=== PATIENT | female | born 1980 | race Caucasian/White ===

== ENCOUNTER 2018-11-13 06:40 | Inpatient (IN) | payer BC ==
[2018-11-13] MEDS ORDERED: CARBOPROST 250 MCG INJ IM ×2 (07:30→10:00)
[2018-11-13] MEDS ORDERED: MISOPROSTOL 200 MCG TAB PR ×2 (07:30→10:00)
[2018-11-13] MEDS ORDERED: OXYTOCIN 30 UNITS/LR 500 ML IV ×3 (07:30→09:20)
[2018-11-13] MEDS ORDERED: METHYLERGONOVINE 0.2 MG INJ IM (07:30)
[2018-11-13 07:31] LABS: ADD MAN DIFF? NO
[2018-11-13 07:38] LABS: ABNORMAL IP MESSAGE 1; BASOPHILS % 0.4 % (0.0-2.0); EOSINOPHILS % 0.5 % (0.0-7.0); HEMATOCRIT 36.9 % (37.0-47.0); HEMOGLOBIN 12.1 g/dl (12.0-16.0); LYMPHOCYTES # 2.2 10^3/ul (0.8-2.9); LYMPHOCYTES % 27.7 % (15.0-51.0); MEAN CORPUSCULAR HGB CONC 32.8 g/dl (32.0-37.0); MEAN CORPUSCULAR VOLUME 88.5 fl (82.0-101.0); MONOCYTE # 0.4 10^3/ul (0.3-0.9); MONOCYTES % 5.4 % (0.0-11.0); NEUTROPHIL # 5.2 10^3/ul (1.6-7.5); NEUTROPHILS % 65.5 % (39.0-77.0); PLATELET COUNT 76 10^3/UL (140-415); POSITIVE DIFF @See below; RED BLOOD COUNT 4.17 10^6/ul (4.20-5.40); RED CELL DISTRIBUTION WIDTH 15.5 % (11.5-14.5)
[2018-11-13 07:52] LABS: INR 0.85; PARTIAL THROMBOPLASTIN TIME 25.2 Sec (23.0-35.0); PROTIME 11.7 Sec (11.9-14.9); PT RATIO 0.9
[2018-11-13] MEDS: LACTATED RINGER'S 1,000 ML IV ×2 (07:57)
[2018-11-13] MEDS: AZITHROMYCIN 500MG/NS (PMX) 250 ML IV (07:58)
[2018-11-13] MEDS ORDERED: METOCLOPRAMIDE 10 MG INJ (08:24)
[2018-11-13] MEDS ORDERED: ONDANSETRON 4 MG INJ (08:24)
[2018-11-13] MEDS ORDERED: morphine SULFATE/PF (10 MG/10 ML) INJ (08:24)
[2018-11-13 08:26] LABS: HEPATITIS B SURFACE ANTIGEN NEGATIVE (NEGATIVE)
[2018-11-13] MEDS ORDERED: EPHEDrine 25 MG/5 ML SYG (08:39)
[2018-11-13 08:56] LABS: ALANINE AMINOTRANSFERASE 16 IU/L (13-69); ALBUMIN 3.4 g/dl (3.3-4.9); ALBUMIN/GLOBULIN RATIO 0.94; ALKALINE PHOSPHATASE 204 IU/L (42-121); ANION GAP 9 (5-13); ASPARTATE AMINO TRANSFERASE 19 IU/L (15-46); BILIRUBIN,INDIRECT 0.3 mg/dl (0-1.1); BILIRUBIN,TOTAL 0.3 mg/dl (0.2-1.3); CARBON DIOXIDE 20 mmol/L (21-31); CHLORIDE 108 mmol/L (97-110); GLUCOSE 90 mg/dl (70-220); SODIUM 137 mmol/L (135-144); URIC ACID 5.9 mg/dl (3.1-7.9)
[2018-11-13 08:57] LABS: BLOOD UREA NITROGEN 15 mg/dl (7-20); CREATININE 0.52 mg/dl (0.44-1.00); Estimated GFR > 60 mL/min (>60)
[2018-11-13 09:09] LABS: ADD UMIC YES; UR ASCORBIC ACID NEGATIVE (NEGATIVE); UR BACTERIA FEW /HPF (NONE SEEN); UR BILIRUBIN (Dip) NEGATIVE (NEGATIVE); UR BLOOD (Dip) 2+ mg/dL (NEGATIVE); UR CLARITY SLIGHTLY CLOUDY (CLEAR); UR COLOR YELLOW (YELLOW); UR GLUCOSE (Dip) NEGATIVE (NEGATIVE); UR KETONES (Dip) NEGATIVE (NEGATIVE); UR LEUKOCYTE ESTERASE (Dip) 3+ Leu/ul (NEGATIVE); UR MUCUS FEW /HPF (NONE SEEN); UR NITRITE (Dip) NEGATIVE (NEGATIVE); UR RBC 1 /HPF (0-5); UR SPECIFIC GRAVITY (Dip) 1.019 (1.003-1.030); UR SQUAMOUS EPITHELIAL CELL FEW /HPF (FEW); UR TOTAL PROTEIN (Dip) NEGATIVE (NEGATIVE); UR UROBILINOGEN (Dip) NEGATIVE (NEGATIVE); UR WBC 11 /HPF (0-5)
[2018-11-13] MEDS: CEFAZOLIN 2 GM/50 ML (PMX) 50 ML IVPB ×2 (09:44→16:35)
[2018-11-13] MEDS: OXYTOCIN 30 UNITS/LR 500 ML IV ×3 (09:53→13:56)
[2018-11-13] MEDS ORDERED: MEPERIDINE 25 MG INJ IV (10:00)
[2018-11-13] MEDS ORDERED: NACL 0.9% 3 ML SYG IV (10:00)
[2018-11-13] MEDS ORDERED: morphine 2 MG INJ IV ×5 (10:00)
[2018-11-13] MEDS ORDERED: NALOXONE (0.4 MG/ML) INJ IV (10:00)
[2018-11-13] MEDS ORDERED: DIPHENHYDRAMINE 50 MG INJ IV ×2 (10:00)
[2018-11-13] MEDS: ONDANSETRON 4 MG INJ IV ×2 (11:47→13:10)
[2018-11-13] MEDS: METHYLERGONOVINE 0.2 MG INJ IM (12:25)
[2018-11-13 21:32] LABS: RAPID PLASMA REAGIN NONREACTIVE (NR)
[2018-11-14] MEDS: CEFAZOLIN 2 GM/50 ML (PMX) 50 ML IVPB ×3 (00:13→08:03)
[2018-11-14] MEDS: morphine 2 MG INJ IV (03:44)
[2018-11-14 07:09] LABS: ADD MAN DIFF? NO
[2018-11-14 07:12] LABS: WHITE BLOOD COUNT 12.5 10^3/ul (4.8-10.8)
[2018-11-14 07:12] LABS: ABNORMAL IP MESSAGE 1; BASOPHILS % 0.2 % (0.0-2.0); EOSINOPHILS % 0.2 % (0.0-7.0); HEMATOCRIT 28.4 % (37.0-47.0); HEMOGLOBIN 9.3 g/dl (12.0-16.0); LYMPHOCYTES # 1.8 10^3/ul (0.8-2.9); LYMPHOCYTES % 14.8 % (15.0-51.0); MEAN CORPUSCULAR HEMOGLOBIN 29.3 pg (29.0-33.0); MEAN CORPUSCULAR HGB CONC 32.7 g/dl (32.0-37.0); MEAN CORPUSCULAR VOLUME 89.6 fl (82.0-101.0); MEAN PLATELET VOLUME 13.8 fl (7.4-10.4); MONOCYTE # 0.6 10^3/ul (0.3-0.9); MONOCYTES % 4.8 % (0.0-11.0); NEUTROPHIL # 9.9 10^3/ul (1.6-7.5); NEUTROPHILS % 79.4 % (39.0-77.0); PLATELET COUNT 54 10^3/UL (140-415); RED BLOOD COUNT 3.17 10^6/ul (4.20-5.40); RED CELL DISTRIBUTION WIDTH 15.3 % (11.5-14.5)
[2018-11-14 07:16] LABS: POSITIVE DIFF @See below
[2018-11-14] MEDS: LANOLIN HPA 1 PKT TOP (08:05)
[2018-11-14] MEDS: IBUPROFEN 600 MG TAB PO ×3 (10:32→23:51)
[2018-11-14] MEDS: FERROUS SULFATE (EC) 325 MG TAB PO (21:02)
[2018-11-15] MEDS: OXYCODONE/ACETAMINOPHEN (5/325) TAB PO ×2 (01:57→11:31)
[2018-11-15] MEDS: IBUPROFEN 600 MG TAB PO ×4 (05:36→23:58)
[2018-11-15] MEDS: FERROUS SULFATE (EC) 325 MG TAB PO ×2 (09:33→20:54)
[2018-11-15] MEDS: SENNA/DOCUSATE NA (8.6MG/50MG) TAB PO (20:54)
[2018-11-15] MEDS ORDERED: SENNA TAB PO (21:00)
[2018-11-16] MEDS: BISACODYL 10 MG SUPP PR (05:30)
[2018-11-16] MEDS: IBUPROFEN 600 MG TAB PO ×4 (06:00→23:43)
[2018-11-16] MEDS: FERROUS SULFATE (EC) 325 MG TAB PO ×2 (09:33→21:01)
[2018-11-16] MEDS: SENNA/DOCUSATE NA (8.6MG/50MG) TAB PO ×2 (09:33→21:01)
[2018-11-16] MEDS: OXYCODONE/ACETAMINOPHEN (5/325) TAB PO (16:23)
[2018-11-17] MEDS: IBUPROFEN 600 MG TAB PO ×2 (05:27→12:26)
[2018-11-17] MEDS: BISACODYL 10 MG SUPP PR (05:27)
[2018-11-17] MEDS: FERROUS SULFATE (EC) 325 MG TAB PO (09:09)
[2018-11-17] MEDS: SENNA/DOCUSATE NA (8.6MG/50MG) TAB PO (09:09)
[2018-11-17] MEDS: OXYCODONE/ACETAMINOPHEN (5/325) TAB PO (14:16)
== END 2018-11-17 17:59 | disposition home or self-care (01) | DRG 785 ==
LOC: OBT 06:40 → L-D 06:40 → OBT 07:10 → L-D 07:10 → PP1 12:06
PROC: 10D00Z1 Extraction of Products of Conception, Low, Open Approach (ICD-10-PCS; principal; 2018-11-13 08:00)
PROC: 0UB70ZZ Excision of Bilateral Fallopian Tubes, Open Approach (ICD-10-PCS; 2018-11-13 08:00)
DX: O34.211 Maternal care for low transverse scar from previous cesarean delivery (principal); Z3A.39 39 weeks gestation of pregnancy; Z37.0 Single live birth; Z30.2 Encounter for sterilization
CPT/HCPCS: 80053; 81001; 84560; 85025; 85384; 85610; 85730; 86592; 86850; 86900; 86901; 87340; 88302; 99464